=== PATIENT | male | born 1985 | race Caucasian/White ===

== ENCOUNTER 2018-11-29 13:30 | Emergency (ER) | payer OTHER ==
[2018-11-29 13:58] VITALS: BP 140/95
--- NOTE | 2018-11-29 15:13 | UC ---
Back Pain HPI - HPI Summary HPI Summary: 33 yo male presents with back pain. He tells me that he has a history of low back pain for the last 10 years that "flares" intermittently several times a year. 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 Since that time has had pain in this area that is worse with movement. He has been taking 800mg ibuprofen with great relief. No radiation of pain. Denies numbness, tingling, saddle anesthesia, loss of bowel/bladder control. - History of Current Complaint Chief Complaint: UCBackPain Stated Complaint: BACK PAIN Time Seen by Provider: 11/29/18 15:13 Hx Obtained From: Patient Onset/Duration: Sudden Onset Severity Initially: Mild Severity Currently: Mild Pain Intensity: 3 Pain Scale Used: 0-10 Numeric - Allergies/Home Medications Allergies/Adverse Reactions: Allergies Allergy/AdvReac Type Severity Reaction Status Date / Time No Known Allergies Allergy Verified 11/29/18 13:58 PMH/Surg Hx/FS Hx/Imm Hx - Additional Past Medical History Additional PMH: None - Surgical History Surgical History: None - Family History Known Family History: Positive: Non-Contributory - Social History Occupation: Employed Full-time Lives: With Family Alcohol Use: Weekly Substance Use Type: None Smoking Status (MU): Never Smoked Tobacco Review of Systems All Other Systems Reviewed And Are Negative: No Constitutional: Positive: Negative Skin: Positive: Negative Respiratory: Positive: Negative Cardiovascular: Positive: Negative Neurovascular: Positive: Negative Musculoskeletal: Positive: Other: - Low back pain Neurological: Positive: Negative Psychological: Positive: Negative Physical Exam - Summary Physical Exam Summary: GENERAL: NAD. WDWN. No pain distress. SKIN: No rashes, sores, lesions, or open wounds. NECK: Supple. FROM. Nontender. No lymphadenopathy. CHEST: CTAB. No r/r/w. No accessory muscle use. Breathing comfortably and in no distress. CV: RRR. Without m/r/g. Pulses intact. Cap refill <2seconds MSK: TTP over LEFT lumbar paraspinal muscles. Pain with flexion and extension of spine. Positive SLR on left for low back pain without radiation. Strength 5/ 5 B/L LEs including dorsiflexion and plantar flexion. FROM B/L LEs. No edema. NEURO: Alert. Sensations intact B/L LEs L3-S1. Reflexes intact PSYCH: Age appropriate behavior. Triage Information Reviewed: Yes Vital Signs: Initial Vital Signs Temp 99.2 F 11/29/18 13:52 Pulse 109 11/29/18 13:52 Resp 18 11/29/18 13:52 BP 140/95 11/29/18 13:52 Pulse Ox 99 11/29/18 13:52 Vital Signs Reviewed: Yes Back Pain Course/Dx - Course Course Of Treatment: Suspect low back spasm/strain. Advised to continue ibuprofen and will try him with flexeril. He is able to do physical therapy through his work - I recommended he schedule an appointment for this. F/u with PCP if symptoms do not improve - Differential Dx/Diagnosis Provider Diagnosis: Spasm of muscle of lower back Discharge ED - Sign-Out/Discharge Documenting (check all that apply): Patient Departure All imaging exams completed and their final reports reviewed: No Studies - Discharge Plan Condition: Stable Disposition: HOME Prescriptions: Cyclobenzaprine TAB* [Flexeril 10 MG TAB*] 10 mg PO BID PRN #14 tab PRN Reason: Pain - Moderate Patient Education Materials: Low Back Strain (ED), Muscle Spasm (ED), Lower Back Exercises (ED) Referrals: No Primary Care Phys,NOPCP [Primary Care Provider] - Additional Instructions: If you develop a fever, shortness of breath, chest pain, new or worsening symptoms - please call your PCP or go to the ED immediately. Your blood pressure was high at todays visit. Please see your primary provider within 4 weeks for recheck and re-evaluation. Continue taking the ibuprofen as prescribed - Billing Disposition and Condition Condition: STABLE Disposition: Home
== END 2018-11-29 15:26 | disposition home or self-care (01) ==
LOC: UCEAST 13:30
DX: M62.830 Muscle spasm of back (principal)
CPT/HCPCS: 99202; G0463

== ENCOUNTER 2019-03-07 13:51 | Emergency (ER) | payer OTHER ==
[2019-03-07 14:16] VITALS: BP 140/94
--- NOTE | 2019-03-07 14:16 | UC ---
Headache HPI - HPI Summary HPI Summary: 33 yo male presents with headache. He tells me that 4 days ago he developed a headache on the right parietal aspect of his head. Pain is worse with rapid head movement, exertion, coughing, and bearing down during BM. He states he has had occasional headaches in the past, but nothing like this. Today developed nausea and decreased appetite. He notes seeing some intermittent flashing lights out of his LEFT eye. He has taken tylenol with good relief, but headache returns when tylenol wears off. Headache does wake him up from his sleep. Denies dizziness, numbness, neck pain, SOB, chest pain, palpitations, abdominal pain, weakness. No trauma or head injury. - History Of Current Complaint Chief Complaint: UCHeadache Stated Complaint: HEADACHE Time Seen by Provider: 03/07/19 14:16 Hx Obtained From: Patient Onset/Duration: Gradual Onset Initially Headache Was: Mild Currently Pain Is: Moderate Pain Intensity: 5 - Allergies/Home Medications Allergies/Adverse Reactions: Allergies Allergy/AdvReac Type Severity Reaction Status Date / Time No Known Allergies Allergy Verified 03/07/19 14:14 Home Medications: Home Medications diPHENhydraMINE PO* [Benadryl PO 25 MG TAB*] 1 tab PO BEDTIME PRN 03/07/19 [ History Confirmed 03/07/19] PMH/Surg Hx/FS Hx/Imm Hx - Additional Past Medical History Additional PMH: None - Surgical History Surgical History: None - Family History Known Family History: Positive: Non-Contributory - Social History Occupation: Employed Full-time Lives: With Family Alcohol Use: Weekly Substance Use Type: None Smoking Status (MU): Never Smoked Tobacco Review of Systems All Other Systems Reviewed And Are Negative: No Constitutional: Positive: Negative Skin: Positive: Negative Eyes: Positive: Negative ENT: Positive: Negative Respiratory: Positive: Negative Cardiovascular: Positive: Negative Gastrointestinal: Positive: Nausea Genitourinary: Positive: Negative Motor: Positive: Negative Neurovascular: Positive: Negative Musculoskeletal: Positive: Negative Neurological: Positive: Headache Psychological: Positive: Negative Physical Exam - Summary Physical Exam Summary: GENERAL: NAD. WDWN. No pain distress. SKIN: No rashes, sores, ulcers, masses, lesions. HEENT: Head: AT/NC. No raccoon eyes or battles sign. Eyes: PERRLA. EOM intact. Conjunctiva clear without inflammation or discharge. Ears: Hearing grossly normal. TMs intact, no bulging, erythema, or edema. No hemotympanum Nose: Nasal mucosa pink and moist. NTTP maxillary and frontal sinus. Throat: Posterior oropharynx without exudates, erythema, or tonsillar enlargement. Uvula midline. NECK: Supple. Nontender. FROM CHEST: CTAB. No r/r/w. No accessory muscle use. Breathing comfortably and in no distress. CV: RRR. Pulses intact. Brisk cap refill. ABDOMEN: Soft. NTTP. Bowel sounds present MSK: FROM in B/L UEs and LEs with symmetric strength. NEURO: A&Ox3. 3 word recall, remote, recent memory, ability to follow 2-step directions, and attention intact. CN: II: Peripheral powell intact. Vision normal. III, IV, : EOMI. No nystagmus. PERRLA. V: Sensations intact and symmetric. Opens mouth and clenches teeth. VII: No facial asymmetry. Forehead wrinkles. Grins, shuts eyes, frowns, puffs cheeks. VIII: Hearing intact to finger rub. IX, X: Swallows and coughs. Uvula midline. XI: Shrugs shoulders. Turns head against resistance. XII: No tongue deviation [id number] are intact. Gait with normal base. Romberg: maintains balance, no pronator drift. Normal speech. No facial drooping. PSYCH: Age appropriate behavior. Triage Information Reviewed: Yes Vital Signs: Initial Vital Signs Temp 99.6 F 03/07/19 14:08 Pulse 129 03/07/19 14:08 Resp 16 03/07/19 14:08 BP 153/102 03/07/19 14:08 Pulse Ox 99 03/07/19 14:08 Vital Signs Reviewed: Yes Headache Course/Dx - Course Course Of Treatment: Non-radiating initial episode of exertional headache with nausea. Tachycardic and elevated BP today. Headache wakes him from sleep and has been, to some degree, constant for 4 days with nausea beginning today. POC flu negative. Recommend going to ED for further eval. Pt voiced agreement and will go there now. - Differential Dx/Diagnosis Differential Diagnosis/HQI/PQRI: CVA, TIA, Epidural Hematoma, Subdural Hematoma , Migraine, Subarachnoid Hemorrhage, Tension Headache Provider Diagnosis: Exertional headache Discharge ED - Sign-Out/Discharge Documenting (check all that apply): Patient Departure All imaging exams completed and their final reports reviewed: No Studies - Discharge Plan Condition: Stable Disposition: HOME-RECOMMEND TO ED Referrals: No Primary Care Phys,NOPCP [Primary Care Provider] - Additional Instructions: Please go to the ER for further evaluation of your exertion headache, nausea, and high blood pressure - Billing Disposition and Condition Condition: STABLE Disposition: Home-Recommend to ED
[2019-03-07 14:35] LABS: Influenza A Molecular NEGATIVE (Negative); Influenza B Molecular NEGATIVE (Negative)
== END 2019-03-07 14:39 | disposition home health service (06) ==
LOC: UCEAST 13:51
DX: G44.84 Primary exertional headache (principal); R05 Cough; R11.0 Nausea
CPT/HCPCS: 99212; G0463

== ENCOUNTER 2019-03-07 14:59 | Emergency (ER) | payer OTHER ==
--- NOTE | 2019-03-07 17:00 | ED ---
Headache - HPI Summary HPI Summary: 33 year old male presents with a intermittent headache for the past 5 days. He states that there is one area of the scalp that has sharp like pain. he does have scalp tenderness. States is worse when he coughs or bears down. He denies any history of headaches. Does have a family history of migraines. He denies any fevers. No sinus congestion. No neck pain. No change in vision. No photophobia. He did have floaters in his left eye but that has resolved. He states the highest intensity as been is a 5 out of 10. He states it is relieved with Tylenol. He currently has a headache which is a 5. He hasn't taking anything for the pain. - History Of Current Complaint Chief Complaint: EDHeadache Stated Complaint: HIGH BP/HEADACHE PER PT Time Seen by Provider: 03/07/19 16:26 - Allergies/Home Medications Allergies/Adverse Reactions: Allergies Allergy/AdvReac Type Severity Reaction Status Date / Time No Known Allergies Allergy Verified 03/07/19 14:14 PMH/Surg Hx/FS Hx/Imm Hx Endocrine/Hematology History: Denies: Hx Diabetes, Hx Thyroid Disease Cardiovascular History: Denies: Hx Hypertension Respiratory History: Denies: Hx Asthma, Hx Chronic Obstructive Pulmonary Disease (COPD) GI History: Denies: Hx Ulcer Infectious Disease History: No Infectious Disease History: Denies: Hx Hepatitis, Hx Human Immunodeficiency Virus (HIV), Traveled Outside the [place] in Last 30 Days - Family History Known Family History: Positive: Non-Contributory - Social History Alcohol Use: Weekly Substance Use Type: Reports: None Smoking Status (MU): Never Smoked Tobacco Review of Systems Negative: Fever Negative: Chest Pain Negative: Shortness Of Breath Positive: Headache All Other Systems Reviewed And Are Negative: Yes Physical Exam Triage Information Reviewed: Yes Vital Signs On Initial Exam: Initial Vitals Temp Pulse Resp BP Pulse Ox 98.3 F 120 18 133/97 98 03/07/19 15:05 03/07/19 15:05 03/07/19 15:05 03/07/19 15:05 03/07/19 15:05 Vital Signs Reviewed: Yes Appearance: Positive: Well-Appearing Skin: Positive: Warm, Dry Head/Face: Positive: Normal Head/Face Inspection, Scalp - tenderness Eyes: Positive: Normal, EOMI, DAGOBERTO, Conjunctiva Clear ENT: Positive: Normal ENT inspection, Pharynx normal, TMs normal Respiratory/Lung Sounds: Positive: Clear to Auscultation, Breath Sounds Present Cardiovascular: Positive: Normal, RRR Musculoskeletal: Positive: Normal Neurological: Positive: Sensory/Motor Intact, Alert, Oriented to Person Place, Time, CN Intact II-III Psychiatric: Positive: Normal Procedures - Sedation Patient Received Moderate/Deep Sedation with Procedure: No Diagnostics - Vital Signs Vital Signs Temp Pulse Resp BP Pulse Ox 03/07/19 15:05 98.3 F 120 18 133/97 98 - Laboratory Result Diagrams: 03/07/19 17:23 03/07/19 17:23 Lab Statement: Any lab studies that have been ordered have been reviewed, and results considered in the medical decision making process. - CT brain CT Interpretation Completed By: Radiologist Summary of CT Findings: IMPRESSION: NO EVIDENCE FOR ACUTE INTRACRANIAL ABNORMALITY Re-Evaluation - Re-Evaluation First Eval Change: Improved Comment: heart rate 90, a little improvement with toradol Headache Course/Dx - Course Course Of Treatment: 33 year old male presents with a intermittent headache for the past 5 days. He states that there is one area of the scalp that has sharp like pain. he does have scalp tenderness. States is worse when he coughs or bears down. He denies any history of headaches. Does have a family history of migraines. He denies any fevers. No sinus congestion. No neck pain. No change in vision. No photophobia. He did have floaters in his left eye but that has resolved. He states the highest intensity as been is a 5 out of 10. He states it is relieved with Tylenol. He currently has a headache which is a 5. He hasn't taking anything for the pain. On exam patient is tachycardic. normal neuro exam. wbc normal. TSH normal. CT brain normal. gave Toradol and feeling better and heart rate by palpation was 90. gave referral to neurology. Patient understands and agrees with plan. - Diagnoses Differential Diagnosis/HQI/PQRI: Migraine, Tension Headache, Viral Syndrome Provider Diagnoses: Headache Discharge ED - Sign-Out/Discharge Documenting (check all that apply): Patient Departure - Discharge Plan Condition: Good Disposition: HOME Patient Education Materials: Acute Headache (ED) Referrals: Julius Vincent MD [Medical Doctor] - [facility] [Outside] Additional Instructions: follow up with [facility] within 4 days a referral was given for neurology Return to ED if develop any new or worsening symptoms - Billing Disposition and Condition Condition: GOOD Disposition: Home
[2019-03-07 17:33] LABS: ABS Eosinophils 0.1 10^3/ul (0-0.6); ABS Lymphocytes 1.5 10^3/ul (1.0-4.8); ABS Monocytes 0.9 10^3/ul (0-0.8); ABS Neutrophils 6.2 10^3/ul (1.5-7.7); Eosinophil % 0.7 %; Hematocrit 48 % (42-52); Lymphocyte % 17.3 %; Mean Corpuscular HGB Conc 35 g/dL (31-36); Mean Corpuscular Hemoglobin 30 pg (27-31); Mean Corpuscular Volume 86 fL (80-94); Mean Platelet Volume 9.1 fL (7.4-10.4); Nucleated Red Blood Cells % 0.2; Platelet Count 285 10^3/uL (150-450); Red Blood Count 5.62 10^6 /uL (4.18-5.48); Red Cell Distribution Width 13 % (10-15); White Blood Count 8.6 10^3/uL (3.5-10.8)
[2019-03-07 17:51] LABS: ALT 52 U/L (7-52); AST 29 U/L (13-39); Albumin 5.3 g/dL (3.2-5.2); Alkaline Phosphatase 65 U/L (34-104); Anion Gap 9 mmol/L (2-11); BUN/Creatinine Ratio 7.5 (8-20); Blood Urea Nitrogen 9 mg/dL (6-24); C Reactive Protein < 1.00 mg/L (<8.01); CO2 Carbon Dioxide 25 mmol/L (22-32); Chloride 100 mmol/L (101-111); EGFR African American 85.4 (>60); EGFR Non-African American 70.6 (>60); Globulin 2.7 g/dL (2-4); Glucose 102 mg/dL (70-100); Potassium 3.9 mmol/L (3.5-5.0); Sodium 134 mmol/L (135-145)
[2019-03-07] MEDS ORDERED: Ketorolac INJ* 30 MG/ML 1 ML VIAL IM ONE (17:56)
[2019-03-07 18:21] LABS: TSH (Thyroid Stimulating Horm) 1.59 mcIU/mL (0.34-5.60)
[2019-03-07 18:34] VITALS: BP 121/84
== END 2019-03-07 18:33 | disposition home or self-care (01) ==
LOC: ED 14:59
DX: R51 Headache (principal)
CPT/HCPCS: 36415; 70450; 80053; 84443; 85025; 86140; 96372; 99282; J1885